=== PATIENT | male | born 1995 | race Caucasian/White ===

== ENCOUNTER 2018-01-26 22:38 | Emergency (ER) | payer BC ==
--- NOTE | 2018-01-26 22:40 | ER Report ---
History and Physical Time Seen By MD: 22:40 HPI/ROS CHIEF COMPLAINT: Left upper quadrant pain HISTORY OF PRESENT ILLNESS: 22-year-old male with a quadrant pain for 4 hours. He notes a mild nausea. He describes a sharp, colicky pain without radiation to his back or other parts of his abdomen. He's had no change in bowel habits. No diarrhea or constipation. He does note some urinary urgency and frequency. No urinary burning or hematuria. He denies family history of kidney stones. Patient notes no recent infective symptoms such as fever, sore throat, cough or rhinitis. REVIEW OF SYSTEMS: Respiratory: No cough, no dyspnea. Cardiovascular: No chest pain, no palpitations. Gastrointestinal: As above Musculoskeletal: No back pain. Allergies: Coded Allergies: No Known Drug Allergies (Unverified , 01/26/18) Home Meds Active Scripts Ondansetron Hcl (ZOFRAN) 4 Mg Tablet, 4 MG PO Q6H Y for NAUSEA/VOMITING, #10 Prov:DIANE DAILEY DO 01/26/18 Tramadol Hcl (TRAMADOL HCL) 50 Mg Tablet, 1 TAB PO Q4-6H Y for PAIN, #15 MG TAKE ONE TO TWO TABLETS BY MOUTH EVERY FOUR TO SIX HOURS NEEDED Prov:DIANE DAILEY DO 01/26/18 Reviewed Nurses Notes: Yes Old Medical Records Reviewed: Yes Constitutional Vital Sign - Last 24 Hours 01/26/18 01/26/18 01/26/18 01/26/18 22:47 22:53 23:00 23:08 Temp 97.9 Pulse 90 99 88 Resp 20 B/P (MAP) 130/100 109/87 (94) Pulse Ox 95 95 95 O2 Delivery Room Air 01/26/18 01/26/18 01/26/18 01/26/18 23:30 23:38 23:43 23:58 Pulse 90 90 83 B/P (MAP) 112/82 (92) Pulse Ox 94 94 94 01/27/18 01/27/18 00:00 00:13 Pulse 85 B/P (MAP) 119/76 (90) Pulse Ox 94 Physical Exam General Appearance: The patient is alert, has no immediate need for airway protection and no current signs of toxicity. Vital signs stable, afebrile, pulse ox normal HEENT: Pupils equal and round no injection. Oropharynx without redness or exudate, mucous membranes are moist Respiratory: Chest is non tender, lungs are clear to auscultation. Cardiac: regular rate and rhythm Gastrointestinal: Abdomen is soft, mild left upper quadrant tenderness, no rebound or guarding, no sputum megaly, no masses, bowel sounds normal. Musculoskeletal: Neck: Neck is supple and non tender. No lymphadenopathy Extremities have full range of motion and are non tender. Skin: No rashes or lesions. DIFFERENTIAL DIAGNOSIS: After history and physical exam differential diagnosis was considered for abdominal pain including but not limited to appendicitis, cholecystitis, gastritis, colic, constipation, colitis, splenomegaly and urinary tract infection. Medical Decision Making Data Points Result Diagram: 01/26/18 2314 01/26/18 2314 Laboratory Hematology Test 01/26/18 22:42 01/26/18 23:14 Urine Color Straw Urine Clarity Clear Urine pH 6.0 pH (4.8-9.5) Urine Specific Harrison 1.008 Urine Protein Negative mg/dL (NEGATIVE) Urine Glucose (UA) 50 mg/dL (NEGATIVE) Urine Ketones Negative mg/dL (NEGATIVE) Urine Blood Negative (NEGATIVE) Urine Nitrite Negative (NEGATIVE) Urine Bilirubin Negative (NEGATIVE) Urine Urobilinogen Negative mg/dL (0.2-1.9) Urine Leukocyte Esterase Negative (NEGATIVE) Urine RBC None /HPF (0-2/HPF) Urine WBC <1 /HPF (0-5/HPF) Urine Squamous Epithelial Cells None /LPF (</=FEW) Urine Bacteria Negative /HPF (NONE-FEW) Urine Mucus None /HPF (NONE-FEW) Red Blood Count 5.66 M/uL (4.00-5.60) Mean Corpuscular Volume 88.2 fL (80.0-96.0) Mean Corpuscular Hemoglobin 31.3 pg (26.0-33.0) Mean Corpuscular Hemoglobin Concent 35.5 g/dL (32.0-36.0) Red Cell Distribution Width 13.5 % (11.5-14.5) Mean Platelet Volume 7.8 fL (7.2-11.1) Neutrophils (%) (Auto) 75.2 % (39.4-72.5) Lymphocytes (%) (Auto) 18.6 % (17.6-49.6) Monocytes (%) (Auto) 4.9 % (4.1-12.4) Eosinophils (%) (Auto) 0.5 % (0.4-6.7) Basophils (%) (Auto) 0.8 % (0.3-1.4) Nucleated RBC Relative Count (auto) 0.0 /100WBC Neutrophils # (Auto) 9.8 K/uL (2.0-7.4) Lymphocytes # (Auto) 2.4 K/uL (1.3-3.6) Monocytes # (Auto) 0.6 K/uL (0.3-1.0) Eosinophils # (Auto) 0.1 K/uL (0.0-0.5) Basophils # (Auto) 0.1 K/uL (0.0-0.1) Nucleated RBC Absolute Count (auto) 0.00 K/uL Sodium Level 140 mmol/L (137-145) Potassium Level 3.3 mmol/L (3.5-5.0) Chloride Level 101 mmol/L (98-107) Carbon Dioxide Level 22 mmol/L (22-30) Blood Urea Nitrogen 14 mg/dl (9-21) Creatinine 0.80 mg/dl (0.66-1.25) Glomerular Filtration Rate Calc > 60.0 Random Glucose 145 mg/dl (75-110) Calcium Level 9.3 mg/dl (8.4-10.2) Total Bilirubin 0.4 mg/dl (0.2-1.3) Aspartate Amino Transf (AST/SGOT) 28 U/L (0-35) Alanine Aminotransferase (ALT/SGPT) 41 U/L (0-56) Alkaline Phosphatase 64 U/L (0-126) Total Protein 8.2 gm/dl (6.3-8.2) Albumin 4.6 g/dl (3.5-5.0) Amylase Level 88 U/L (0-110) Lipase 67 U/L (23-300) Monoscreen Negative (NEGATIVE) Chemistry Test 01/26/18 22:42 01/26/18 23:14 Urine Color Straw Urine Clarity Clear Urine pH 6.0 pH (4.8-9.5) Urine Specific Harrison 1.008 Urine Protein Negative mg/dL (NEGATIVE) Urine Glucose (UA) 50 mg/dL (NEGATIVE) Urine Ketones Negative mg/dL (NEGATIVE) Urine Blood Negative (NEGATIVE) Urine Nitrite Negative (NEGATIVE) Urine Bilirubin Negative (NEGATIVE) Urine Urobilinogen Negative mg/dL (0.2-1.9) Urine Leukocyte Esterase Negative (NEGATIVE) Urine RBC None /HPF (0-2/HPF) Urine WBC <1 /HPF (0-5/HPF) Urine Squamous Epithelial Cells None /LPF (</=FEW) Urine Bacteria Negative /HPF (NONE-FEW) Urine Mucus None /HPF (NONE-FEW) White Blood Count 13.0 k/uL (4.5-11.0) Red Blood Count 5.66 M/uL (4.00-5.60) Hemoglobin 17.7 g/dL (14.0-18.0) Hematocrit 49.9 % (42.0-52.0) Mean Corpuscular Volume 88.2 fL (80.0-96.0) Mean Corpuscular Hemoglobin 31.3 pg (26.0-33.0) Mean Corpuscular Hemoglobin Concent 35.5 g/dL (32.0-36.0) Red Cell Distribution Width 13.5 % (11.5-14.5) Platelet Count 370 K/uL (150-450) Mean Platelet Volume 7.8 fL (7.2-11.1) Neutrophils (%) (Auto) 75.2 % (39.4-72.5) Lymphocytes (%) (Auto) 18.6 % (17.6-49.6) Monocytes (%) (Auto) 4.9 % (4.1-12.4) Eosinophils (%) (Auto) 0.5 % (0.4-6.7) Basophils (%) (Auto) 0.8 % (0.3-1.4) Nucleated RBC Relative Count (auto) 0.0 /100WBC Neutrophils # (Auto) 9.8 K/uL (2.0-7.4) Lymphocytes # (Auto) 2.4 K/uL (1.3-3.6) Monocytes # (Auto) 0.6 K/uL (0.3-1.0) Eosinophils # (Auto) 0.1 K/uL (0.0-0.5) Basophils # (Auto) 0.1 K/uL (0.0-0.1) Nucleated RBC Absolute Count (auto) 0.00 K/uL Glomerular Filtration Rate Calc > 60.0 Calcium Level 9.3 mg/dl (8.4-10.2) Total Bilirubin 0.4 mg/dl (0.2-1.3) Aspartate Amino Transf (AST/SGOT) 28 U/L (0-35) Alanine Aminotransferase (ALT/SGPT) 41 U/L (0-56) Alkaline Phosphatase 64 U/L (0-126) Total Protein 8.2 gm/dl (6.3-8.2) Albumin 4.6 g/dl (3.5-5.0) Amylase Level 88 U/L (0-110) Lipase 67 U/L (23-300) Monoscreen Negative (NEGATIVE) Urinalysis Test 01/26/18 22:42 Urine Color Straw Urine Clarity Clear Urine pH 6.0 pH (4.8-9.5) Urine Specific Harrison 1.008 Urine Protein Negative mg/dL (NEGATIVE) Urine Glucose (UA) 50 mg/dL (NEGATIVE) Urine Ketones Negative mg/dL (NEGATIVE) Urine Blood Negative (NEGATIVE) Urine Nitrite Negative (NEGATIVE) Urine Bilirubin Negative (NEGATIVE) Urine Urobilinogen Negative mg/dL (0.2-1.9) Urine Leukocyte Esterase Negative (NEGATIVE) Urine RBC None /HPF (0-2/HPF) Urine WBC <1 /HPF (0-5/HPF) Urine Squamous Epithelial Cells None /LPF (</=FEW) Urine Bacteria Negative /HPF (NONE-FEW) Urine Mucus None /HPF (NONE-FEW) ED Course/Re-evaluation ED Course Patient was admitted to an examination room. H&P was done. The differential diagnoses was considered. On clinical examination. Patient has a benign nonsurgical abdomen. He does have left upper quadrant tenderness. Diagnostic x -rays, laboratory studies are unremarkable except for a mildly elevated white blood cell count. His urinalysis is negative suggesting no evidence of a kidney stone. Patient's advised clear liquid diet with bowel rest. He's advised ibuprofen for inflammatory pain relief. He is given a prescription for Zofran and tramadol for symptomatically relief. He is advised to follow-up with primary care if unimproved in 3-5 days. Decision to Disposition Date: Jan 26, 2018 Decision to Disposition Time: 23:47 Depart Departure Latest Vital Signs Vital Signs Date Time Temp Pulse Resp B/P (MAP) Pulse Ox O2 Delivery O2 Flow Rate FiO2 01/27/18 00:13 85 94 01/27/18 00:00 119/76 (90) 01/26/18 22:47 97.9 20 Room Air Impression: Primary Impression: Left upper quadrant abdominal pain of unknown etiology Additional Impression: Leukocytosis Condition: Improved Disposition: HOME OR SELF-CARE Referrals: FERNANDO JACKSON MD, FARRUKH MD New Scripts Ondansetron Hcl (ZOFRAN) 4 Mg Tablet 4 MG PO Q6H Y for NAUSEA/VOMITING, #10 Prov: DIANE DAILEY DO 01/26/18 Tramadol Hcl (TRAMADOL HCL) 50 Mg Tablet 1 TAB PO Q4-6H Y for PAIN, #15 MG TAKE ONE TO TWO TABLETS BY MOUTH EVERY FOUR TO SIX HOURS NEEDED Prov: DIANE DALIEY DO 01/26/18 Patient Instructions: Abdominal Pain (ED), Clear Liquid Diet (ED) Additional Instructions: Follow clear liquid diet for 24-48 hours. Advance to Susana diet, bananas, rice , applesauce, toast for 24 hours, then resume normal food Take ibuprofen 200 mg 3 tablets 3 times a day for inflammatory pain relief Follow-up with primary care if unimproved in 3-5 days Problem Qualifiers Additional Impression: Leukocytosis Leukocytosis type: unspecified Qualified Codes: D72.829 - Elevated white blood cell count, unspecified DIANE DAILEY DO Jan 26, 2018 22:40
[2018-01-26 23:22] LABS: PLATELET COUNT, AUTOMATED 370 K/uL (150-450)
[2018-01-26] MEDS ORDERED: TRAM-420 PO (23:50)
[2018-01-26] MEDS ORDERED: ONDA4TAB97 PO (23:50)
--- NOTE | 2018-01-26 23:52 | RADIOLOGY IMAGING REPORT ---
FACILITY: [facility] - [place] PATIENT NAME: Monica Chatman : 1995 MR: [id number] V: [id number] EXAM DATE: ORDERING PHYSICIAN: DIANE DAILEY TECHNOLOGIST: Location: [facility] [place] Patient: Monica Chatman : 1995 Visit/Account:[id number] Date of Sevice: 01/26/2018 Abdomen: Indication: Left lower quadrant pain. Technique: Supine views of the abdomen were obtained. Comparison: None. Findings: The intestinal gas pattern is unremarkable. There is no evidence of obstruction or focal di latation. No suspicious calcifications are identified. The skeletal and soft tissue structures appear unremarkable. IMPRESSION: No evidence of obstruction or other acute process. Report Dictated By: Travis Gracia MD at 01/26/2018 11:46 PM Report E-Signed By: Travis Gracia MD at 01/26/2018 11:48 PM WSN:[id number]
[2018-01-26] MEDS ORDERED: traMADol 50 MG TAB TH 2 TAB/BOTTLE PO ONE (23:55)
[2018-01-26] MEDS ORDERED: ONDANSETRON 4 MG ODT TH SL ONE (23:55)
[2018-01-27] VITALS: BP 119/76
== END 2018-01-27 00:18 | disposition home or self-care (01) ==
LOC: ER 23:04
DX: R10.12 Left upper quadrant pain (principal); D72.829 Elevated white blood cell count, unspecified
CPT/HCPCS: 36415; 74018; 81001; 82150; 83690; 85025; 86308; 99283; C9399; S0119; 82040; 82247; 82310; 82374; 82435; 82565; 82947; 84075; 84132; 84155; 84295; 84450; 84460; 84520